=== PATIENT | female | born 1935 | race Caucasian/White ===

== ENCOUNTER 2019-04-21 08:04 | Emergency (ER) | payer MEDICARE ==
--- OUTSIDE RECORDS SUMMARY | 2019-04-21 08:09 | XMS REPORT | Continuity of Care Document ---
:1935 External Reference #:[id number] Author Name Lizabeth Borja O.D. Address [address] [place] [address] Care Team Providers Name Role Phone Damian Shankar M.D. - Endocrinology, Care Team Information Manager Regulatory [phone] Diabetes & Metabolism Problems Active Problems Provider Date Rosacea Onset: Hypothyroidism Onset: H/O: depression Onset: Hypercholesterolemia Onset: Atrial arrhythmia Onset: Tear film insufficiency Harsha Hinojosa M.D. Onset: 12/29/2015 Presence of intraocular lens Harsha Hinojosa M.D. Onset: 12/29/2015 Myopia Harsha Hinojosa M.D. Onset: 12/29/2015 Presbyopia Harsha Hinojosa M.D. Onset: 12/29/2015 Superficial punctate keratitis Harsha Hinojosa M.D. Onset: 03/04/2019 Internal hordeolum Lizabeth Borja O.D. Onset: 03/27/2019 Social History Type Date Description Comments Sex Unknown ETOH Use Denies alcohol use Recreational Drug Use Denies Drug Use Tobacco Use Start: Unknown End: Unknown Patient is a former smoker Smoking Status Reviewed: 03/27/19 Patient is a former smoker Allergies, Adverse Reactions, Alerts Description No Known Drug Allergies Medications Active Medications SIG Qnty Indications Ordering Provider Date Erythromycin apply thin strip 1Tubes Lizabeth Borja, 03/27/2019 5mg/GM to Left Eye O.D. Ointment Twice A Day Metoprolol Succinate Unknown ER 50mg Tablets ER 24HR Synthroid Unknown 112mcg Tablets Prevident 5000 Dry [place] For 2 Unknown Mouth Minutes Once A 1.1% Gel Day Then Spit DO Not Eat, Drink Or ... Potassium Chloride Unknown Elaine ER 20Meq Tablets ER Magnesium Oxide Unknown 400(241.3Mg) mg Tablets Centrum Ultra Womens Unknown Tablets Biotin Unknown 1mg Capsules Vitamin A Unknown Calcium 600+D Unknown 600-400 Tablets Flaxseed Oil 1 by mouth every Unknown 1000mg day Capsules Systane as needed - 3 Harsha Hinojosa, 0.4-0.3% Solution times daily M.D. Immunizations Description No Information Available Vital Signs Description No Information Available Results Description No Information Available Procedures Date Code Description Status 03/04/2019 51127 Determination Of Refractive State Completed 03/04/2019 20589 Est Patient Comprehensive Exam Completed Medical Devices Description No Information Available Encounters Type Date Location Provider Dx Diagnosis Office Visit 03/27/2019 Timo Hernandez, Lizabeth Borja, H00.024 Hordeolum 8:45a , pc OBrendan internum left upper eyelid Assessments Date Code Description Provider 04/05/2019 H00.024 Hordeolum internum left upper eyelid Lizabeth Borja O.D. 04/05/2019 H04.123 Dry eye syndrome of bilateral lacrimal Lizabeth Borja O.D. glands 03/27/2019 H00.024 Hordeolum internum left upper eyelid Lizabeth Borja O.D. 03/04/2019 H16.143 Punctate keratitis, bilateral Harsha Hinojosa M.D. Plan of Treatment Future Appointment(s):04/07/2020 10:00 am - Lizabeth Borja O.D. 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 This is when the Meibomian Glands do not function correctly and periodically get blocked up. This is a chronic condition that requires at home treatment. You can prevent a flare up by using a hot compress for 10-15 minutes at a time once or twice per day. There are a few ways you can do this:1) You can wet down a washcloth with hot water. You may have to re-wet the washcloth or twice during the 15 minute period. 2) You can put uncooked white rice into a clean pair of socks, and without wetting the sock or the rice, heat it up in the microwave for30 seconds. The white rice will release a moist heat and will remain warm for roughly 15 minutes. It is recommended that you replace the rice every month and clean the socks.After using the hot compress, massage along the lash line to help the oils in the glands move freely, proving an oil layer foryour tear film, to keep your tears from evaporating. It is also recommended that you use artificaltears throughout the day, even when your eyes do not feel dry. We recommend that you use them 3-4 times a day to prevent your ocular surface from becoming irritated. When you start to experience symptoms of dryness or irritation, it is often too late for the tears to help until you've let your eyes heal overnight.CONTINUE WARM COMPRESSES NEEDEDCONTINUE APPLYING OINTMENT TO LEFT UPPER EYELID MARGIN TWICE A DAY FOR 1 WEEKIF YOUR SYMPTOMS PERSIST, PLEASE CALL THE OFFICE TO BE SEENIf you have any questions about your condition and the treatment, feel free to call our office at .H04.123 Dry eye syndrome of bilateral lacrimal glandsComments:Smoking can increase the risk of developing or worsening any eye related disease, as well as affect your overall health. If you are a smoker, we strongly recommend that you quit.If you are not a smoker, we strongly recommend that you do not start. Both of your eyes appear to be dry. Use artificial tears as directed. You can use the tears more often if you are reading a book or are on the computer,as we tend to blink less, making our eyes dry out more.[facility] offers a few items in our optical department to help alleviate dry eye symptoms. Functional Status Description No Information Available Mental Status Description No Information Available Referrals Description No Information Available
--- OUTSIDE RECORDS SUMMARY | 2019-04-21 08:09 | XMS REPORT | Continuity of Care Document ---
:1935 External Reference #:[id number] Author Name Lizabeth Borja O.D. Address [address] [place] [address] Care Team Providers Name Role Phone Damian Shankar M.D. - Endocrinology, Care Team Information Farm Reporter [phone] Diabetes & Metabolism Problems Active Problems Provider [...] Synthroid Unknown 112mcg Tablets Prevident 5000 Dry [place] For 2 Unknown Mouth Minutes Once A [...] Available Procedures Date Code Description Status 03/04/2019 19752 Determination Of Refractive State Completed 03/04/2019 88783 Est Patient Comprehensive Exam Completed Medical Devices Description No Information Available Encounters Description No Information Available Assessments Date Code Description Provider 03/27/2019 H00.024 Hordeolum internum left upper eyelid Lizabeth Borja O.D. 03/04/2019 H16.143 Punctate keratitis, bilateral Harsha Hinojosa M.D. Plan of Treatment 03/27/2019 - Lizabeth Borja O.D.H00.024 Hordeolum internum left upper eyelidComments:Smoking can increase the risk of developing or worsening any eye related disease, as well as affect your overall health. If you are a smoker, we strongly recommend that you quit.If you are not a smoker, we strongly recommend that you do not start. 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 This [...] rice, heat it up in the microwave for 30 seconds. The white rice will release a moist heat and will remain warm for roughly 15 minutes. It is recommended that you replace the rice every month and clean the socks.After using the hot compress, massage along the lash line to help the oils in the glands move freely, proving an oil layer for your tear film, to keep your tears from evaporating. It is also recommended that you use artifical tears throughout the day, even when your eyes do notfeel dry. We recommend that you use them 3-4 times a day to prevent your ocular surface from becoming irritated. When you start to experience symptoms of dryness or irritation, it is often too late for the tears to help until you've let your eyes heal overnight.USE WARM COMPRESSES A LEAST TWICE A DAY WITH GENTLE LID MASSAGE, FOLLOWED BY ERYTHROMYCIN OINTMENTIF YOUR SYMPTOMS WORSEN, PLEASE CALL THE OFFICE TO BE SEENIf you have any questions about your condition and the treatment, feel free to call our office at .Follow up:1 WEEK OR SOONER NEEDED Functional Status Description No Information Available Mental Status Description No Information Available Referrals Description No Information Available
--- OUTSIDE RECORDS SUMMARY | 2019-04-21 08:09 | XMS REPORT | Continuity of Care Document ---
:1935 External Reference #:[id number] Author Name Harsha Hinojosa M.D. Address [address] [place] [address] Care Team Providers Name Role Phone Damian Shankar M.D. - Endocrinology, Care Team Information Medical Scribe [phone] Diabetes & Metabolism Problems Active Problems Provider Date Rosacea Onset: Hypothyroidism Onset: H/O: depression Onset: Hypercholesterolemia Onset: Atrial arrhythmia Onset: Tear film insufficiency Harsha Hinojosa M.D. Onset: 12/29/2015 Presence of intraocular lens Harsha Hinojosa M.D. Onset: 12/29/2015 Myopia Harsha Hinojosa M.D. Onset: 12/29/2015 Presbyopia Harsha Hinojosa M.D. Onset: 12/29/2015 Superficial punctate keratitis Harsha Hinojosa M.D. Onset: 03/04/2019 Social History Type Date Description Comments Sex Unknown ETOH Use Denies alcohol use Recreational Drug Use Denies Drug Use Tobacco Use Start: Unknown End: Unknown Patient is a former smoker Smoking Status Reviewed: 03/04/19 Patient is a former smoker Allergies, Adverse Reactions, Alerts Description No Known Drug Allergies Medications Active Medications SIG Qnty Indications Ordering Provider Date Metoprolol Succinate Unknown ER 50mg Tablets ER 24HR Synthroid Unknown 112mcg Tablets Prevident 5000 Dry [place] For 2 Unknown Mouth Minutes Once A [...] Available Results Description No Information Available Procedures Description No Information Available Medical Devices Description No Information Available Encounters Description No Information Available Assessments Date Code Description Provider 03/04/2019 H16.143 Punctate keratitis, bilateral Harsha Hinojosa M.D. Plan of Treatment 03/04/2019 - Harsha Hinojosa M.D.H16.143 Punctate keratitis, bilateralComments :Smoking can increase the risk of developing or worsening any eye related disease, as well as affect your overall health. If you are a smoker, we strongly recommend that you quit.If you are not a smoker, we strongly recommend that you do not start.Follow up:2 Year Follow Up DFE You can expect to have your eyes dilated at your next visit. If Dr. Hinojosa orders any additional testing, it may require extra time. We recommend that you bring sunglasses, as dilation drops often make you light sensitive until they wear off. We always recommend you bring someone to drive you home if you are uncomfortable driving with your eyes dilated. If you have any questions before your next visit, feel free to call our office at . Functional Status Description No Information Available Mental Status Description No Information Available Referrals Description No Information Available
--- NOTE | 2019-04-21 08:13 | UC ---
Eye Complaint HPI - HPI Summary HPI Summary: 83 yo female presents with RIGHT eye complaint. She tells me that she is just getting over a stye in her LEFT eye. Last night noticed some upper eyelid swelling to her RIGHT eye, therefore she inverted her eyelid and applied erythromycin ointment. This morning she woke and her eyelid was purple in color with purple discoloration inferior to here eye as well - resembling a classic "black eye". She came directly to . She denies pain, itching, drainage, vision changes, fever, or recent illness. She wears glasses. Denies trauma. - History of Current Complaint Stated Complaint: EYE COMPLAINT Time Seen by Provider: 04/21/19 08:11 Hx Obtained From: Patient Onset/Duration: Sudden Onset Severity Currently: None - Allergies/Home Medications Allergies/Adverse Reactions: Allergies Allergy/AdvReac Type Severity Reaction Status Date / Time No Known Allergies Allergy Verified 04/21/19 08:09 Home Medications: Home Medications Amoxicillin PO (*) [Amoxicillin 500 MG CAP*] 2,000 mg PO ONCE PRN 04/21/19 [ History Confirmed 04/21/19] Atorvastatin Calcium [Lipitor] 40 mg PO DAILY 04/21/19 [History Confirmed ] Calcium Carb, Citrate/Vit D3 [Calcium+D3 Gradual Releas] 1 tab PO DAILY [History Confirmed 04/21/19] Cyanocobalamin TAB* [Vitamin B12 TAB*] 1,000 mcg PO DAILY 04/21/19 [History Confirmed 04/21/19] Levothyroxine TAB* [Synthroid TAB*] 100 mcg PO DAILY 04/21/19 [History Confirmed 04/21/19] Magnesium Oxide TAB* [MagOx 400 TAB*] 400 mg PO DAILY 04/21/19 [History Confirmed 04/21/19] Metoprolol Succinate 50 mg PO DAILY 04/21/19 [History Confirmed 04/21/19] Multivit-Min/Folic Acid/Vit K1 [Multi For Her 50 Plus Softgel] 1 each PO DAILY 04/21/19 [History Confirmed 04/21/19] Potassium Chlor TAB* [Klor Con ER TAB*] 20 meq PO DAILY 04/21/19 [History Confirmed 04/21/19] Sulfacetamide Sodium [Ovace Plus] 1.7 % TP BID 04/21/19 [History Confirmed 04/21] Vitamin A 11,500 unit PO 04/21/19 [History] PMH/Surg Hx/FS Hx/Imm Hx - Additional Past Medical History Additional PMH: Vtach Endocrine History: Hypothyroidism, Dyslipidemia Cardiovascular History: Hypertension GI/ History: Gastroesophageal Reflux - Surgical History Surgical History: Yes Surgery Procedure, Year, and Place: back surgery 2008 or 2009, right knee replacement 2013 - Family History Known Family History: Positive: Unknown - Social History Lives: With Family Alcohol Use: None Substance Use Type: None Smoking Status (MU): Never Smoked Tobacco Amount Used/How Often: 1/2-1 PPD When Did the Patient Quit Smoking/Using Tobacco: 1988 - Immunization History Most Recent Influenza Vaccination: 2012 Most Recent Tetanus Shot: less then 10 yrs Most Recent Pneumonia Vaccination: 2011 Review of Systems All Other Systems Reviewed And Are Negative: No Constitutional: Positive: Negative Skin: Positive: Negative Eyes: Positive: Other - Eyelid swelling and discoloration ENT: Positive: Negative Respiratory: Positive: Negative Cardiovascular: Positive: Negative Neurological: Positive: Negative Psychological: Positive: Negative Physical Exam - Summary Physical Exam Summary: GENERAL: NAD. WDWN. No pain distress. SKIN: No rashes, sores, lesions, or open wounds. HEENT: Head: AT/NC Eyes: EOM intact without pain. Conjunctiva clear without inflammation or discharge. RIGHT EYE: Upper eyelid with mild edema. NTTP. Ecchymosis to upper eyelid, lateral eye, and inferior orbit. NTTP. No drainage. Ears: Hearing grossly normal. TMs intact, no bulging, erythema, or edema. Nose: Nasal mucosa pink and moist. NTTP maxillary and frontal sinus. NECK: Supple. Nontender. No lymphadenopathy. CHEST: No accessory muscle use. Breathing comfortably and in no distress. NEURO: Alert. PSYCH: Age appropriate behavior. Triage Information Reviewed: Yes Vital Signs: Vital Signs: Temp Pulse Resp BP Pulse Ox 97.1 F 77 16 122/71 97 04/21/19 08:11 04/21/19 08:11 04/21/19 08:11 04/21/19 08:11 04/21/19 08:11 Vital Signs Reviewed: Yes Eye Complaint Course/Dx - Course Course Of Treatment: Suspect blepharitis with superficial ecchymosis. She has no erythema, warmth, vision changes, fever, wounds, or pain. I recommended continuing to use the eye ointment and f/u with Dr. Hernandez tomorrow. - Differential Dx/Diagnosis Provider Diagnosis: Blepharitis of eyelid of right eye Discharge ED - Sign-Out/Discharge Documenting (check all that apply): Patient Departure All imaging exams completed and their final reports reviewed: No Studies - Discharge Plan Condition: Stable Disposition: HOME Patient Education Materials: Blepharitis (ED) Referrals: Damian Shankar MD [Primary Care Provider] - Timo Hernandez MD [Medical Doctor] - 1 Day Additional Instructions: Your eye appears to have the beginnings of stye. I believe the purple discoloration is due to a broken blood vessel. There does not appear to be an infection at this time. Please continue using the eye ointment and I recommend that you see Dr. Hernandez tomorrow or monday for a recheck - Billing Disposition and Condition Condition: STABLE Disposition: Home
[2019-04-21 08:19] VITALS: BP 122/71
== END 2019-04-21 08:41 | disposition home or self-care (01) ==
LOC: UCEAST 08:04
DX: H01.001 Unspecified blepharitis right upper eyelid (principal); E03.9 Hypothyroidism, unspecified; I10 Essential (primary) hypertension; E78.5 Hyperlipidemia, unspecified; Z79.890 Hormone replacement therapy; Z79.899 Other long term (current) drug therapy
CPT/HCPCS: 99211; G0463